=== PATIENT | female | born 1975 | race Caucasian/White ===

== ENCOUNTER 2020-10-29 09:44 | Emergency (ER) | payer OTHER, MEDICAID ==
[~2020-10-29] VITALS: Ht 160 cm; Wt 65.8 kg
[2020-10-29] MEDS ORDERED: LYRICA 50 MG50 MG PO (10:02)
[2020-10-29] MEDS ORDERED: LEVOTHYROXINE125 MC1 PO (10:02)
[2020-10-29] MEDS ORDERED: NOVOLOG FL100 UNIT/M SUBQ (10:03)
[2020-10-29] MEDS ORDERED: LANTUS SOL100 UNIT/1 SUBQ (10:03)
[2020-10-29 10:24] LABS: ABSOLUTE LYMPHOCYTES 1.3 thou/uL (0.8-5.3); ABSOLUTE MONOCYTES 0.4 thou/uL (0.0-1.2); ABSOLUTE NEUTROPHILS 3.3 thou/uL (1.6-8.1); BASOPHILS 0.9 %; EOSINOPHILS 0.1 %; HEMATOCRIT 42.8 % (37.0-47.0); HEMOGLOBIN 14.9 gm/dL (12.0-15.0); LYMPHOCYTES 26.4 %; MCH 30.8 pg (26.0-34.0); MCHC 34.8 g/dL (28.0-37.0); MCV 88.3 fL (80.0-100.0); MONOCYTES 8.4 %; MPV 8.3 fl. (7.2-11.1); NUCLEATED RBCS 0 /100WBC; PLATELET COUNT* 196 thou/uL (150-400); POLYS 64.2 %; RBC 4.85 mil/uL (4.20-5.00); RDW-CV 12.8 % (10.5-14.5); WBC 5.1 thou/uL (4.0-11.0)
[2020-10-29 10:26] LABS: URINE BILIRUBIN NEGATIVE (Negative); URINE BLOOD NEGATIVE (Negative); URINE CLARITY CLEAR; URINE COLOR YELLOW; URINE GLUCOSE-RANDOM NEGATIVE (Negative); URINE KETONES NEGATIVE (Negative); URINE LEUKOCYTES-REFLEX NEGATIVE (Negative); URINE NITRITE-REFLEX NEGATIVE (Negative); URINE PROTEIN NEGATIVE (Negative); URINE SPECIFIC GRAVITY 1.025 (1.005-1.030); URINE UROBILINOGEN 0.2 E.U./dl (0.2-1.0)
[2020-10-29 10:35] LABS: CALCIUM 8.7 mg/dL (8.5-10.1); CREATININE 0.8 mg/dL (0.6-1.3); POTASSIUM 4.2 mmol/L (3.5-5.1)
[2020-10-29 10:40] LABS: ALBUMIN 3.6 g/dL (3.4-5.0); TOTAL BILIRUBIN 0.4 mg/dL (<0.1-1.0); TOTAL PROTEIN 7.1 g/dL (6.4-8.2)
[2020-10-29] MEDS ORDERED: HYDROCODON-ACE1 EAC7 PO (11:33)
[2020-10-29] MEDS ORDERED: FLEXERIL PO (11:33)
[2020-10-29] MEDS ORDERED: ZOFRAN ODT4 MG SUBLING (11:33)
[2020-10-29 11:40] VITALS: BP 114/67
== END 2020-10-29 11:43 | disposition home or self-care (01) ==
LOC: M.ERS 09:44
PROVIDERS: Family Medicine
DX: M54.9 Dorsalgia, unspecified (principal); Z88.8 Allergy status to other drugs, medicaments and biological substances; Z79.899 Other long term (current) drug therapy